=== PATIENT | female | born 1950 | race Hispanic/Latino ===

== ENCOUNTER → 2018-03-31 | Outpatient (CLI) | payer MEDICARE ==
--- NOTE | 2018-03-31 09:52 | Diagnostic Imaging Report ---
EXAM: Thyroid Ultrasound INDICATION: ^[id number] ^[id number] ^HYPOTHYROIDISM COMPARISON: None TECHNIQUE: Transverse and sagittal images were obtained of the thyroid gland. FINDINGS: Thyroid gland: Size: Right lobe 4.0 x 1.4 x 1.2 cm, Normal in size Left lobe 3.0 x 0.9 x 1.1 cm, Normal in size Isthmus 0.3 cm, Normal in size Appearance: Heterogeneous echotexture without increased vascularity Masses/Nodules: None Parathyroid: No focal parathyroid masses. IMPRESSION: Heterogeneous thyroid gland. No focal nodule is seen. Signed by: Dr. Wilman Vargas M.D. on 03/31/2018 9:48 AM
== END ==
LOC: US 08:51
PROVIDERS: ATTEND Family Medicine
DX: E03.9 Hypothyroidism, unspecified (principal)
CPT/HCPCS: 76536

== ENCOUNTER → 2019-04-11 | Outpatient (CLI) | payer MEDICARE | LOC: RAD 09:25 | PROVIDERS: ATTEND Family Medicine | DX: I10 Essential (primary) hypertension (principal) | CPT/HCPCS: 93306 ==

== ENCOUNTER 2019-12-07 08:20 | Inpatient (IN) | payer MEDICARE ==
[~2019-12-07] VITALS: Ht 157.5 cm; Wt 63.5 kg
[2019-12-07] MEDS ORDERED: PIPER-TAZ 3.375 GM 50 ML IV STA (08:35)
[2019-12-07] MEDS ORDERED: ONDANSETRON HCL INJ 2MG/ML 2ML 2 MG/ML VIAL IV STA (08:35)
[2019-12-07] MEDS ORDERED: MORPHINE SULFATE INJ 4 MG/ML INJ 1ML IV PRN ×2 (08:45→12:00)
--- NOTE | 2019-12-07 08:49 | Emergency Department Note ---
History of Present Illnes History of Present Illness Chief Complaint: Abdominal Complaints History of Present Illness This is a 69 year old female arrives to the ED with complaints of right lower quadrant pain/tenderness of began this morning. States symptoms associated with nausea but no vomiting.. Historian: Patient Arrival Mode: Car History limited by: condition of the patient Onset (how long ago): day(s) Severity: moderate Onset quality: sudden Duration (how long): day(s) Timing of current episode: constant Progression: worsening Chronicity: new Past Medical/Family History Physician Review I have reviewed the patient's past medical and family history. Any updates have been documented here. Past Medical History Recent Fever: Yes Clinical Suspicion of Infectio: Yes New/Unexplained Change in Ment: No Past Medical History: Hypertension, Hypothyroidism Other Medical History: osteoporosis Past Surgical History: Tubal Ligation, Back Surgery Review of Systems Review of Systems Constitutional: Reports no symptoms EENTM: Reports no symptoms Cardiovascular: Reports no symptoms Respiratory: Reports no symptoms Gastrointestinal: Reports as per HPI, Reports abdominal pain, Reports nausea Genitourinary: Reports no symptoms Musculoskeletal: Reports no symptoms Integumentary: Reports no symptoms Neurological: Reports no symptoms Psychological: Reports no symptoms Endocrine: Reports no symptoms Hematological/Lymphatic: Reports no symptoms Physical Exam Related Data Allergies: Coded Allergies: No Known Allergies (Unverified , 12/07/19) Triage Vital Signs Vital Signs Date Time Temp Pulse Resp B/P (MAP) Pulse Ox O2 Delivery O2 Flow Rate FiO2 12/07/19 08:23 102.0 101 18 145/83 99 Room Air Vital signs reviewed: Yes Physical Exam CONSTITUTIONAL Constitutional: Present well-developed, Present well-nourished HENT HENT: Present normocephalic, Present atraumatic, Present oropharynx clear/moist, Present nose normal HENT L/R: Present left ext ear normal, Present right ext ear normal EYES Eyes: Reports PERRL, Reports conjunctivae normal NECK Neck: Present ROM normal PULMONARY Pulmonary: Present effort normal, Present breath sounds normal CARDIOVASCULAR Cardiovascular: Present regular rhythm, Present heart sounds normal, Present capillary refill normal, Present normal rate GASTROINTESTINAL Abdominal: Present soft, Present bowel sounds normal, Present tender GENITOURINARY Genitourinary: Present exam deferred SKIN Skin: Present warm, Present dry MUSCULOSKELETAL Musculoskeletal: Present ROM normal NEUROLOGICAL Neurological: Present alert, Present oriented x 3, Present no gross motor or sensory deficits PSYCHOLOGICAL Psychological: Present mood/affect normal, Present judgement normal Results Laboratory Lab results reviewed: Yes Imaging Imaging results reviewed: Yes Impressions IMPRESSION: 1. Indeterminant etiology of an inflammatory mass versus phlegmonous change in the right lower quadrant extending into the right hemipelvis measuring up to 6.3 cm. Multiple structures are involved including a dilated and inflamed appendix, the right ovary as well as the right ureter which courses through the region. Findings are most concerning for either acute on chronic appendicitis versus appendicitis superimposed on underlying distal appendiceal mass. Contained perforation is also a consideration. Negative for pneumoperitoneum. Negative for right hydronephrosis. Given patient's age a tubo-ovarian abscess is considered less likely. No drainable fluid component to the mass is identified. 2. 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 3. Uncomplicated colonic diverticulosis. The above findings were discussed with Dr. Daniels on 12/07/2019 11:40 AM, who responded indicating that the communication was understood. Assessment & Plan Medical Decision Making MDM 61-year-old female arrived to the ED right lower quadrant abdominal pain. CT findings concerning for appendicitis with possible underlying mass. Patient admitted for further workup and management. Patient given empiric dose of antibiotics in the ED. Dr. Gibbs informed of findings. Assessment & Plan Final Impression: (1) Right lower quadrant abdominal mass (2) Appendicitis Depart Disposition: ADMITTED Last Vital Signs Date Time Temp Pulse Resp B/P (MAP) Pulse Ox O2 Delivery O2 Flow Rate FiO2 12/07/19 08:23 102.0 101 18 145/83 99 Room Air Home Meds Reported Medications Losartan/Hydrochlorothiazide (LOSARTAN-HCTZ 50-12.5 MG TAB) 1 Each Tablet, 1 TAB PO DAILY 12/07/19 Thyroid,Pork (EXTRUDING MACHINE OPERATOR THYROID) 90 Mg Tablet, 90 MG PO DAILY 12/07/19 JOSHUA DANIELS DO Dec 07, 2019 08:44
[2019-12-07] MEDS ORDERED: ACETAMINOPHEN 325 MG TAB PO ONE (09:00)
[2019-12-07] MEDS: SODIUM CHLORIDE 0.9% 1000ML 1,000 ML IV SCH ×2 (09:01→13:25)
[2019-12-07 09:12] LABS: BASOPHILS % 0.2 % (0.0-1.0); EOSINOPHILS % 0.1 % (0.0-6.0); HEMATOCRIT 37.9 % (34.2-44.1); HEMOGLOBIN 13.2 g/dL (12.0-16.0); LYMPHOCYTES # (AUTO) 0.5 (1.0-3.2); LYMPHOCYTES % 5.4 % (18.0-39.1); MEAN CORPUSCULAR HEMOGLOBIN 29.9 pg (28-32); MEAN CORPUSCULAR HGB CONC 34.8 g/dL (31-35); MEAN CORPUSCULAR VOLUME 85.9 fL (81-99); MONOCYTES # (AUTO) 0.1 (0.2-0.8); MONOCYTES % 0.8 % (4.4-11.3); NEUTROPHILS # (AUTO) 8.9 (2.1-6.9); NEUTROPHILS % 92.9 % (38.7-80.0); PLATELET COUNT 221 x10e3/uL (140-360); RED BLOOD COUNT 4.41 x10e6/uL (3.6-5.1); RED CELL DISTRIBUTION WIDTH 11.9 % (11.7-14.4)
[2019-12-07 09:25] LABS: ALANINE AMINOTRANSFERASE 40 IU/L (0-55); ALBUMIN 3.5 g/dL (3.5-5.0); ALBUMIN/GLOBULIN RATIO 0.9 (0.8-2.0); ALKALINE PHOSPHATASE 132 IU/L (40-150); ANION GAP 13.8 mmol/L (8-16); BLOOD UREA NITROGEN 11 mg/dL (7-26); BUN/CREATININE RATIO 14 (6-25); CALCIUM 8.7 mg/dL (8.4-10.2); CARBON DIOXIDE 21 mmol/L (22-29); CHLORIDE 101 mmol/L (98-107); CREATININE, SERUM 0.78 mg/dL (0.57-1.11); EST GLOMERULAR FILTRATION RATE > 60 ML/MIN (60-); GLUCOSE 340 mg/dL (74-118); POTASSIUM 3.8 mmol/L (3.5-5.1); SODIUM 132 mmol/L (136-145)
[2019-12-07 09:31] LABS: CLARITY,URINE CLEAR (CLEAR); COLOR,URINE YELLOW (YELLOW); KETONES,URINE 2+ (NEGATIVE); LEUKOCYTE ESTERASE ,URINE NEGATIVE (NEGATIVE); NITRITE,URINE NEGATIVE (NEGATIVE); PROTEIN,URINE DIPSTICK 2+ (NEGATIVE)
[2019-12-07 09:32] LABS: BILIRUBIN,URINE NEGATIVE (NEGATIVE); URINE UROBILINOGEN 0.2 mg/dL (0.2 - 1)
[2019-12-07] MEDS ORDERED: IOPAMIDOL 370 MG/ML 200 ML INFUS..BTL INJ ONE (09:46)
[2019-12-07] MEDS ORDERED: SODIUM CHLORIDE 0.9% 50ML 50 ML ONE (09:46)
[2019-12-07 09:47] LABS: BACTERIA,URINE RARE /HPF; EPITHELIAL CELLS,URINE RARE /LPF; RBC,URINE 0-5 /HPF (0-5); WBC,URINE (MAN) 0-5 /HPF (0-5)
--- NOTE | 2019-12-07 11:59 | Diagnostic Imaging Report ---
CT of the abdomen and pelvis with contrast TECHNIQUE: CT of the abdomen and pelvis WITH intravenous contrast and WITHOUT oral contrast. Dose modulation, iterative reconstruction, and/or weight-based adjustment of the mA/kV was utilized to reduce the radiation dose to as low as reasonably achievable. IV CONTRAST: 100 mL of Isovue-370 ORAL CONTRAST: None RADIATION DOSE: Total DLP: 643 mGy*cm COMPLICATIONS: None INDICATION: ^Y ^rlq pain ^[id number] ^[id number]. COMPARISON: None. FINDINGS: LOWER THORAX: Unremarkable. HEPATOBILIARY: No focal hepatic lesions. Gallbladder is unremarkable. No biliary ductal dilatation. SPLEEN: No splenomegaly. PANCREAS: No focal masses or ductal dilatation. A few scattered calcifications are noted. ADRENALS: No adrenal nodules. KIDNEYS/URETERS: No hydronephrosis, stones, or masses. PELVIC ORGANS/BLADDER: Urinary bladder is unremarkable. Uterus and left ovary are unremarkable. Right ovary is not separately identified from the right lower quadrant inflammatory mass that are described below. PERITONEUM/RETROPERITONEUM: No free air or fluid. LYMPH NODES: No lymphadenopathy. A few prominent right lower quadrant mesenteric lymph nodes are noted, nonspecific VESSELS: Multiple thrombosed peripherally calcified splenic artery aneurysms are noted. The largest measure up to 1.7 and 1.4 cm. GI TRACT: Limited due to lack of oral contrast. Small hiatal hernia is noted. Mid to distal stomach is decompressed limiting evaluation. Negative for bowel obstruction. Numerous diverticula are identified of the sigmoid colon without surrounding inflammatory changes. In the right lower quadrant there is a enhancing inflammatory phlegmon versus mass measuring up to 6.3 x 3.4 cm along the anterior aspect of the psoas extending to the pelvic inlet. A separate right ovary is not identified in the expected region of the right adnexa suggesting that the ovaries probably contained within this region as well. There is mild surrounding inflammatory change. The appendix demonstrates peripheral enhancement, dilatation and surrounding inflammatory change and extends directly within this complex lesion. The distal portion of the appendix is not well visualized within the lesion. The right ureter also courses directly through the region and is mildly more prominent than the left. BONES AND SOFT TISSUES: No acute osseous abnormality. Focal advanced degenerative changes are noted at L5-S1. No suspicious lytic or blastic lesion. Soft tissues are unremarkable. IMPRESSION: 1. Indeterminant etiology of an inflammatory mass versus phlegmonous change in the right lower quadrant extending into the right hemipelvis measuring up to 6.3 cm. Multiple structures are involved including a dilated and inflamed appendix, the right ovary as well as the right ureter which courses through the region. Findings are most concerning for either acute on chronic appendicitis versus appendicitis superimposed on underlying distal appendiceal mass. Contained perforation is also a consideration. Negative for pneumoperitoneum. Negative for right hydronephrosis. Given patient's age a tubo-ovarian abscess is considered less likely. No drainable fluid component to the mass is identified. 2. 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 3. Uncomplicated colonic diverticulosis. The above findings were discussed with Dr. Galdamez on 12/07/2019 11:40 AM, who responded indicating that the communication was understood. Signed by: Chau Teixeira MD on 12/07/2019 11:56 AM
[2019-12-07 12:07] LABS: AMYLASE 55 U/L (25-125); LIPASE 78 U/L (8-78)
[2019-12-07] MEDS ORDERED: METRONIDAZOLE 500MG/NS 100ML 100 ML IV SCH (12:30)
[2019-12-07] MEDS ORDERED: NP THYROID90 MG PO (14:23)
[2019-12-07] MEDS ORDERED: LOSARTAN-HCTZ1 EACH PO (14:23)
[2019-12-07 14:55] VITALS: BP 123/72
--- NOTE | 2019-12-07 14:55 | NUR ---
PATIENT RECEIVED FROM ER PER STRETCHER, ALERT AND VERBALLY RESPONSIVE. ASSISTED TO THE RESTROOM AND BACK TO BED. DENIED PAIN AT THIS TIME. SKIN WARM AND DRY TO TOUCH, RESPIRATION EVEN AND UNLABORED, ABDOMEN SOFT AND NON DISTENDED. TELEMETRY BOX IN PLACE. PATIENT ORIENTED TO SURROUNDINGS. BED IN LOWER POSITION AND LOCKED. CALL LIGHT AT REACH, INSTRUCTED TO CALL FOR ASSISTANCE NEEDED. DAUGHTER AT BED SIDE.
[2019-12-07 15:49] VITALS: BP 134/64
[2019-12-07] MEDS: PIPER-TAZ 3.375 GM 50 ML IV SCH ×2 (16:20→22:15)
[2019-12-07] MEDS: ONDANSETRON HCL INJ 2MG/ML 2ML 2 MG/ML VIAL IV PRN (18:20)
--- NOTE | 2019-12-07 18:52 | History and Physical ---
CHIEF COMPLAINT: A 69-year-old female that came in with right lower quadrant abdominal pain. HISTORY OF PRESENTING ILLNESS: Ms. Brandi Solorio, who is in a usual state of health until the day prior to admission the patient started to have abdominal pain, which is 9/10 in intensity. The patient came into the emergency room and was found to have questionable appendicitis and was admitted for the same. PAST MEDICAL HISTORY: History of hypertension, history of hypothyroidism, and history of osteoporosis. PAST SURGICAL HISTORY: History of tubal ligation and history of back surgery in the mid 80s. MEDICATION: She takes at home include losartan, hydrochlorothiazide, and antithyroid 19 mg daily. REVIEW OF SYSTEMS: Negative for chest pain. No shortness of breath. No nausea. No vomiting. No diarrhea. No constipation. No rectal bleeding. No hematochezia. No hematemesis. Positive for abdominal pain. SOCIAL HISTORY: No EtOH, no IV drug abuse. No history of smoking either. PHYSICAL EXAMINATION: VITAL SIGNS: On arrival, temperature was 102, pulse of 101, respirations of 18, blood pressure is 145/83, T-max is 102. HEENT: Normocephalic, atraumatic. No jaundice present. CVS: S1, S2 normal. Regular rate and rhythm. ABDOMEN: Tender in the right lower quadrant, positive for rebound, Positive for guarding. EXTREMITIES: No clubbing, no cyanosis, no edema. LABORATORY VALUES: White count is 9.55, hemoglobin of 13.2, hematocrit of 37.9. Chemistry shows sodium 132, potassium 3.8, BUN of 11, creatinine 0.78, glucose is 340. Urine was essentially normal. Serology: Lorenz virus was pending. Microbiology, blood cultures pending. IMAGING STUDIES: CT of the abdomen and pelvis shows indeterminate etiology for inflammatory phlegmonous changes in the right lower quadrant extending into the right hemipelvis, 6.3 cm in size multiple structures involved including a dilated inflamed appendix, calcified splenic artery aneurysms and uncomplicated colonic diverticulosis. ASSESSMENT AND PLAN: Ms. Brandi Solorio with: 1. Appendicitis. Surgical consult with Dr. Gibbs has been already done. 2. Hypertension. 3. History of hypothyroidism. PLAN: To continue same medications. Awaiting Dr. Gibbs's consult at this time. Further recommendation per clinical course. We will continue to monitor the patient. Pain control and fluid resuscitation has been started. The patient is also put on IV antibiotic for leukocytosis. Currently, she is on metronidazole and will change metronidazole to Zosyn 3.75 mg q.6 hours. MD ZENA Young/MODL /[id number]
--- NOTE | 2019-12-07 19:50 | NUR ---
Pt has a temperature of 100.[address] Rudy john for orders. Awaiting call back.
[2019-12-07 20:00] VITALS: BP 126/67
[2019-12-07] MEDS ORDERED: ACETAMINOPHEN 325 MG SUPP PR PRN (20:30)
[2019-12-07] MEDS ORDERED: ACETAMINOPHEN 325 MG TAB PO PRN (20:30)
--- NOTE | 2019-12-07 20:34 | NUR ---
Received call back from Dr. Grant. New orders received for PRN Acetaminophen.
[2019-12-07 21:00] VITALS: BP 126/67
[2019-12-07] MEDS: METRONIDAZOLE 500MG/NS 100ML 100 ML IV SCH (21:16)
--- NOTE | 2019-12-07 21:35 | NUR ---
Consent signed by patient for exploratory laparotomy with possible bowel resection in AM. Pt's daughter, Katherin Solorio, served as hourly sign language interpreter. Pt verbalized understanding of procedure and risks of surgery. Dr. Gibbs spoke to pt and daughter prior to signing consent. Patient and daughter verbalized understanding of NPO status after midnight.
[2019-12-08] VITALS (7 sets, daily range): BP systolic 101–150; BP diastolic 62–80
[2019-12-08] MEDS: SODIUM CHLORIDE 0.9% 1000ML 1,000 ML IV SCH ×2 (04:45→18:08)
[2019-12-08] MEDS: PIPER-TAZ 3.375 GM 50 ML IV SCH ×4 (04:45→21:16)
[2019-12-08 06:11] LABS: BASOPHILS % 0.5 % (0.0-1.0); EOSINOPHILS % 0.5 % (0.0-6.0); HEMATOCRIT 34.6 % (34.2-44.1); HEMOGLOBIN 11.7 g/dL (12.0-16.0); LYMPHOCYTES # (AUTO) 0.4 (1.0-3.2); LYMPHOCYTES % 6.8 % (18.0-39.1); MEAN CORPUSCULAR HEMOGLOBIN 30.1 pg (28-32); MEAN CORPUSCULAR HGB CONC 33.8 g/dL (31-35); MEAN CORPUSCULAR VOLUME 88.9 fL (81-99); MONOCYTES # (AUTO) 0.3 (0.2-0.8); MONOCYTES % 4.9 % (4.4-11.3); NEUTROPHILS # (AUTO) 5.5 (2.1-6.9); PLATELET COUNT 154 x10e3/uL (140-360); RED BLOOD COUNT 3.89 x10e6/uL (3.6-5.1); RED CELL DISTRIBUTION WIDTH 12.2 % (11.7-14.4)
[2019-12-08] MEDS: METRONIDAZOLE 500MG/NS 100ML 100 ML IV SCH ×2 (06:28→13:50)
[2019-12-08] MEDS ORDERED: ACETAMINOPHEN 650 MG SUPP PR PRN (06:30)
[2019-12-08 06:42] LABS: ALANINE AMINOTRANSFERASE 32 IU/L (0-55); ALBUMIN 2.8 g/dL (3.5-5.0); ALBUMIN/GLOBULIN RATIO 0.7 (0.8-2.0); ALKALINE PHOSPHATASE 87 IU/L (40-150); ANION GAP 10.5 mmol/L (8-16); BLOOD UREA NITROGEN 10 mg/dL (7-26); BUN/CREATININE RATIO 14 (6-25); CALCIUM 7.9 mg/dL (8.4-10.2); CARBON DIOXIDE 22 mmol/L (22-29); CHLORIDE 104 mmol/L (98-107); EST GLOMERULAR FILTRATION RATE > 60 ML/MIN (60-); GLUCOSE 272 mg/dL (74-118); POTASSIUM 3.5 mmol/L (3.5-5.1); SODIUM 133 mmol/L (136-145)
[2019-12-08] MEDS ORDERED: DEXTROSE 50% SYRINGE 50 ML IV PRN (07:00)
[2019-12-08] MEDS: INSULIN LISPRO 100 UNIT/1 ML 3ML VIAL SQ SCH ×4 (07:30→21:00)
--- NOTE | 2019-12-08 07:31 | NUR ---
PATIENT ASSISTED WITH SHOWER AND BACK TO BED. REMAINS NPO FOR A PROCEDURE. IV FUID INFUSING ORDERED. BED IN LOWER POSITION, CALL LIGHT AT REACH.
--- NOTE | 2019-12-08 07:55 | Progress Note ---
DATE: 12/08/2019 SUBJECTIVE: The patient is a 69-year-old female, who came in with acute abdomen. The patient is scheduled for surgery today. Had a spike in temperature yesterday. Otherwise, no complaints. OBJECTIVE: VITAL SIGNS: Temperature is 98.9, pulse of 89, respirations of 20, blood pressure is 117/62 with a pulse oximetry of 100%. HEENT: Normocephalic, atraumatic. No icterus present. CVS: S1, S2 normal. Regular rate and rhythm. ABDOMEN: Tenderness in the left lower quadrant and periumbilical area. Positive for guarding and no rebound. EXTREMITIES: No clubbing, no cyanosis and/or no edema. LABORATORY VALUES: Today's white count 6.32, hemoglobin and hematocrit remained stable at 11.7 and 34.6. Chemistry; sodium 133, glucose of 272. Lipase is 78. Serology; coronavirus is still pending. Microbiology; blood cultures still pending. ASSESSMENT AND PLAN: This is Ms. Brandi Donovan, who is a 69-year-old female with: 1. Acute appendicitis. 2. Hypertension. 3. Hypothyroidism and now hyperglycemia. PLAN: 1. Okay to take to surgery. 2. We will put her on a sliding scale for insulin sliding scale. 3. We will also check her hemoglobin A1c. 4. Continue current medications. can be given with a sip of water. Further recommendation per clinical course. We will keep the patient n.p.o. and schedule for surgery with Dr. Cesario Gibbs today. MD ZENA Young/MODL /[id number]
--- NOTE | 2019-12-08 11:13 | NUR ---
SPOKE WITH OR NURSE REGARDING PATIENT'S PROCEDURE AND TIME, SHE STATED THAT PATIENT WILL BE PICKED UP AROUND 14:00. PATIENT NOTIFIED.
--- NOTE | 2019-12-08 13:09 | NUR ---
PATIENT OFF UNIT TO OR.
[2019-12-08] MEDS ORDERED: FENTANYL CITRATE/PF 100MCG/2 ML INJ ONE (14:30)
[2019-12-08] MEDS ORDERED: VERAPAMIL HCL 2.5 MG/ML 2 ML VIAL ONE (14:30)
[2019-12-08] MEDS ORDERED: ONDANSETRON HCL INJ 2MG/ML 2ML 2 MG/ML VIAL IV PRN (15:45)
[2019-12-08] MEDS ORDERED: HYDROMORPHONE 1MG/1ML INJ IV PRN (15:45)
--- NOTE | 2019-12-08 16:33 | Operative Report ---
DATE OF PROCEDURE: 12/08/2019 SURGEON: Cesario Gibbs MD PREOPERATIVE DIAGNOSIS: Inflammatory mass of the right lower quadrant, rule out appendicitis versus right ovarian mass. POSTOPERATIVE DIAGNOSIS: Inflammatory mass of the right lower quadrant, rule out appendicitis versus right ovarian mass plus Meckel's diverticulum. OPERATION PERFORMED: Exploratory laparotomy, appendectomy, right salpingo-oophorectomy and resection of Meckel's diverticulum. INJECTION MOLDING SUPERVISOR: William Gibbs MD. ANESTHESIA: General. COMPLICATIONS: None. ESTIMATED BLOOD LOSS: 50 mL. INDICATION: The patient lying in bed in the supine position under good general endotracheal anesthesia. The abdomen was prepped with Betadine solution and draped in the usual manner. A lower midline incision was made, was carried down through the subcutaneous tissue and through the midline fascia. The peritoneum was opened and the abdomen was entered. Upon entering the abdominal cavity, exploration revealed an inflammatory mass in the right lower quadrant. The left ovary was within normal limits. The uterus was also within normal limits. Exploration of the small bowel revealed a Meckel's diverticulum. Upon further exploration of the right lower quadrant, there was an inflammatory mass that involved the appendix. The base of the appendix appeared to be normal with the lower 2/3 of the appendix were plastered to the right ovary. The right ovary and tube and adnexa were showing significant inflammatory reaction in the area as well, it was impossible to tell, which was the source of the infection with the appendix or the ovary, although more than likely the offending organism is going to be the appendix. We decided to go ahead and remove both the appendix and the right adnexa as there was too much of an inflammatory component in the right adnexa to leave behind. The appendix was then mobilized off the lateral gutter and the cecum was brought up. At this point, we decided to go ahead and separate the appendix and the ovary and this was done sharply. Once this was done, the mesentery of the appendix was then ligated with 2-0 Vicryl ties. The base of the appendix which was normal was ligated with 2-0 Vicryl tie. The appendix was then resected and sent for pathological examination and the stump was cauterized and inverted with a pursestring suture of 2-0 Vicryl. After this was done, the peritoneum overlying the base of the ovary was then opened up and the ovarian pedicle was identified and doubly ligated with 0 silk ties and divided. The right adnexa were then mobilized off the lateral gutter towards the uterine horn. The inflammatory component extended all the way up to the uterine horn. The uterine horn was then suture ligated with 0 Vicryl sutures and the right adnexa was resected and sent for pathological examination. After this was done, the Meckel's diverticulum was then delivered up into the wound and was resected with an application of the TA-60 stapler. The staple line was oversewn with 3-0 silk sutures. The abdomen was then copiously irrigated with saline solution. All the fluid was aspirated, a perfect hemostasis was ascertained and the abdomen was then closed in layers. The peritoneum was closed with a running suture of #1 Vicryl, the midline fascia was closed with a running suture of #1 Vicryl and the skin was closed with clips. Dressings were applied. The sponge, lap, and needle count was correct. The patient tolerated the procedure well and returned to the recovery room in stable condition. MD ESAU Guerra/MIKAEL /[id number]
--- NOTE | 2019-12-08 16:45 | NUR ---
PATIENT TO BE TRANSFER TO MED SURG 1 ROOM 113 AFTER PROCEDURE. BEDSIDE REPORT GIVEN TO RECEIVING NURSE. ALL PERSONAL ITEMS TRANSFERRED TO 113 WITH PATIENT'S DAUGHTER.
--- NOTE | 2019-12-08 16:48 | NUR ---
PT ARRIVED TO ROOM 113; IN STABLE CONDITION.
[2019-12-08] MEDS ORDERED: PROPOFOL IV EMULSION 10 MG/ML 20 ML VIAL ONE (17:57)
[2019-12-08] MEDS ORDERED: NEOSTIGMINE 1 MG/ML 10ML VIAL ONE (17:57)
[2019-12-08] MEDS ORDERED: LIDOCAINE HCL 2% LOCAL INJ 5 ML SDV VIAL INJ ONE (17:57)
[2019-12-08] MEDS ORDERED: SEVOFLURANE INHAL SOLN 250 ML PEN BTL ONE (17:57)
[2019-12-08] MEDS ORDERED: DEXAMETHASONE SOD PHOS INJ 4 MG/ML VIAL ONE (17:57)
[2019-12-08] MEDS ORDERED: ROCURONIUM BROMIDE 10 MG/ML 5ML VIAL IV ONE (17:57)
[2019-12-08] MEDS ORDERED: GLYCOPYRROLATE INJ 0.2 MG/ML VIAL ONE (17:57)
[2019-12-08] MEDS ORDERED: ONDANSETRON HCL INJ 2MG/ML 2ML 2 MG/ML VIAL ONE (17:57)
[2019-12-08] MEDS: PANTOPRAZOLE 40 MG 10ML VIAL IV SCH (18:08)
--- NOTE | 2019-12-08 19:05 | NUR ---
RECEIVED REPORT FROM PREVIOUS NURSE. CALL LIGHT WITHIN REACH. PATIENT ASLEEP IN BED. DAUGHTER AT THE BEDSIDE. Addendum: 12/08/19 at 2221 by Mili Valdovinos RN HE ALSO SAID "IF SHE DRINKS ANYTHING SHE WILL VOMIT." Addendum: 12/09/19 at 0033 by Mili Valdovinos RN the amended part was suppose to be on the next note when I called Dr. Dede Purdy
--- NOTE | 2019-12-08 22:18 | NUR ---
PATIENT ASKED TO HAVE SOMETHING TO DRINK. CALLED AND TALKED TO DR. Dede SIMS AND HE SAID "WHEN I PUT A PATIENT ON NPO, THEY STAY ON NPO. THE PATIENT HAD A BAD INFECTION. SHE HAD HER APPENDIX REMOVED, OVARIES, AND SOME OF HER BOWEL SO SHE STAYS NPO."
[2019-12-09 04:10] VITALS: BP 166/96
[2019-12-09] MEDS: PIPER-TAZ 3.375 GM 50 ML IV SCH ×4 (04:27→22:05)
[2019-12-09] MEDS: ONDANSETRON HCL INJ 2MG/ML 2ML 2 MG/ML VIAL IV PRN (04:28)
[2019-12-09] MEDS: SODIUM CHLORIDE 0.9% 1000ML 1,000 ML IV SCH ×3 (06:22→22:13)
--- NOTE | 2019-12-09 07:05 | NUR ---
GAVE BEDSIDE SHIFT REPORT TO ONCOMING NURSE. CALL LIGHT WITHIN REACH. PATIENT IN BED ASLEEP. HOURLY ROUNDING PERFORMED. DAUGHTER AT THE BEDSIDE
[2019-12-09] MEDS: INSULIN LISPRO 100 UNIT/1 ML 3ML VIAL SQ SCH ×4 (07:30→21:20)
[2019-12-09 08:47] LABS: BASOPHILS % 0.1 % (0.0-1.0); HEMOGLOBIN 11.5 g/dL (12.0-16.0); LYMPHOCYTES # (AUTO) 0.6 (1.0-3.2); LYMPHOCYTES % 7.3 % (18.0-39.1); MEAN CORPUSCULAR HGB CONC 33.8 g/dL (31-35); MEAN CORPUSCULAR VOLUME 88.8 fL (81-99); MONOCYTES # (AUTO) 0.4 (0.2-0.8); MONOCYTES % 5.3 % (4.4-11.3); NEUTROPHILS # (AUTO) 6.9 (2.1-6.9); NEUTROPHILS % 86.8 % (38.7-80.0); PLATELET COUNT 199 x10e3/uL (140-360); RED BLOOD COUNT 3.83 x10e6/uL (3.6-5.1); RED CELL DISTRIBUTION WIDTH 12.5 % (11.7-14.4)
[2019-12-09 08:54] VITALS: BP 146/87
[2019-12-09 09:07] LABS: ANION GAP 13.8 mmol/L (8-16); BLOOD UREA NITROGEN 13 mg/dL (7-26); BUN/CREATININE RATIO 20 (6-25); CARBON DIOXIDE 17 mmol/L (22-29); CHLORIDE 110 mmol/L (98-107); CREATININE, SERUM 0.64 mg/dL (0.57-1.11); EST GLOMERULAR FILTRATION RATE > 60 ML/MIN (60-); GLUCOSE 234 mg/dL (74-118); POTASSIUM 3.8 mmol/L (3.5-5.1); SODIUM 137 mmol/L (136-145)
[2019-12-09 10:29] VITALS: BP 146/87
[2019-12-09 12:26] VITALS: BP 163/86
--- NOTE | 2019-12-09 15:30 | NUR ---
PT WAS AMBULATING IN ROOM WITH DAUGHTER AT BEDSIDE, THEN SUDDENLY BECAME SHORT OF BREATH AND TACHYPNEIC. PT LAID DOWN IN BED, PLACED ON 2L NC O2. VITAL SIGNS: TEMPERATURE 98.1, 91 BPM, 100% ON 2L, 181/94 BP, RESPIRATIONS 20. PT AFEBRILE, MORE RELAXED IN BED WITH 2L NC IN PLACE. FLUIDS PLACED ON HOLD DUE TO ELEVATED BLOOD PRESSURE. PAGING DR. REIS FOR ORDERS.
--- NOTE | 2019-12-09 16:12 | NUR ---
DR. CHONG CALLED BACK FOR DR. REIS; RECEIVED NEW ORDERS FOR BLOOD PRESSURE.
[2019-12-09] MEDS ORDERED: HYDRALAZINE HCL 20 MG/ML VIAL IV PRN (16:15)
[2019-12-09] MEDS: PANTOPRAZOLE 40 MG 10ML VIAL IV SCH (17:21)
--- NOTE | 2019-12-09 19:25 | NUR ---
Received the pt in report.lyeing in the bed..abd.binder is in place.denied any needs
[2019-12-09 20:00] VITALS: BP 150/76
[2019-12-09 21:00] VITALS: BP 150/76
[2019-12-10] VITALS (8 sets, daily range): BP systolic 135–161; BP diastolic 77–87
--- NOTE | 2019-12-10 00:43 | Progress Note ---
DATE: 12/10/2019 SUBJECTIVE: Currently, the patient is doing fairly well. She is actually tolerating her clear liquid diet with no issues. No nausea or vomiting. She states her pain is well controlled. She said earlier this afternoon she did have a low moment of shortness of breath that has since resolved. OBJECTIVE: VITAL SIGNS: Temperature 99.1, pulse 89, blood pressure 150/76, sats 99% on room air. GENERAL: No apparent distress, lying in bed. CARDIOVASCULAR: Regular rate and rhythm. LUNGS: Clear to auscultation bilaterally. ABDOMEN: Soft, slight bowel sounds, nondistended, nontender. No peritoneal signs. EXTREMITIES: No clubbing or cyanosis. NEUROLOGIC: Moves all extremities x4. ASSESSMENT/PLAN: 1. Status post abdominal surgery with abdominal pain. Continue with postoperative care and monitoring. 2. Diabetes. Continue with current care monitoring. 3. Hypertension. We will restart her home medicines. 4. Hypothyroidism. We will restart her home medicines. Please see hospital chart for full details. MD BARBRA Gardner/MIKAEL /[id number]
[2019-12-10] MEDS: PIPER-TAZ 3.375 GM 50 ML IV SCH ×4 (04:51→21:59)
[2019-12-10] MEDS: SODIUM CHLORIDE 0.9% 1000ML 1,000 ML IV SCH ×2 (05:38→16:45)
[2019-12-10 06:07] LABS: BASOPHILS % 0.1 % (0.0-1.0); EOSINOPHILS % 0.4 % (0.0-6.0); HEMATOCRIT 35.7 % (34.2-44.1); HEMOGLOBIN 12.2 g/dL (12.0-16.0); LYMPHOCYTES % 12.5 % (18.0-39.1); MEAN CORPUSCULAR HEMOGLOBIN 29.6 pg (28-32); MEAN CORPUSCULAR HGB CONC 34.2 g/dL (31-35); MEAN CORPUSCULAR VOLUME 86.7 fL (81-99); MONOCYTES # (AUTO) 0.5 (0.2-0.8); MONOCYTES % 6.5 % (4.4-11.3); NEUTROPHILS # (AUTO) 6.5 (2.1-6.9); NEUTROPHILS % 79.9 % (38.7-80.0); PLATELET COUNT 237 x10e3/uL (140-360); RED BLOOD COUNT 4.12 x10e6/uL (3.6-5.1); RED CELL DISTRIBUTION WIDTH 12.2 % (11.7-14.4)
[2019-12-10 06:54] LABS: ANION GAP 14.1 mmol/L (8-16); BLOOD UREA NITROGEN 8 mg/dL (7-26); BUN/CREATININE RATIO 13 (6-25); CALCIUM 8.5 mg/dL (8.4-10.2); CARBON DIOXIDE 20 mmol/L (22-29); CHLORIDE 102 mmol/L (98-107); EST GLOMERULAR FILTRATION RATE > 60 ML/MIN (60-); GLUCOSE 208 mg/dL (74-118); POTASSIUM 3.1 mmol/L (3.5-5.1); SODIUM 133 mmol/L (136-145)
--- NOTE | 2019-12-10 07:26 | NUR ---
Bed side shift report given to oncoming Rn.stable condition.
[2019-12-10] MEDS: THYROID 60 MG TAB PO SCH (07:42)
[2019-12-10] MEDS: INSULIN LISPRO 100 UNIT/1 ML 3ML VIAL SQ SCH ×4 (08:09→21:20)
[2019-12-10] MEDS ORDERED: NON-FORMULARY MEDICATION (Losartan/Hydrochlorothiazide (Losartan-Hctz 50-12.5 Mg Tab) 1 TA PO SCH (09:00)
[2019-12-10] MEDS: LOSARTAN POTASSIUM 25 MG TAB PO SCH (11:14)
[2019-12-10] MEDS: HYDROCHLOROTHIAZIDE 25 MG TAB PO SCH (11:15)
[2019-12-10] MEDS: PANTOPRAZOLE 40 MG 10ML VIAL IV SCH (17:24)
--- NOTE | 2019-12-10 19:15 | NUR ---
Received the patient in report.stable condition.call light within reach.instructed to call for assistance as needed.
[2019-12-11] VITALS (7 sets, daily range): BP systolic 129–149; BP diastolic 69–87
[2019-12-11] MEDS: SODIUM CHLORIDE 0.9% 1000ML 1,000 ML IV SCH ×3 (02:06→22:45)
[2019-12-11] MEDS: PIPER-TAZ 3.375 GM 50 ML IV SCH ×4 (03:47→22:27)
[2019-12-11 05:24] LABS: BASOPHILS % 0.4 % (0.0-1.0); EOSINOPHILS # (AUTO) 0.2 (0.0-0.4); EOSINOPHILS % 2.3 % (0.0-6.0); HEMATOCRIT 37.8 % (34.2-44.1); LYMPHOCYTES # (AUTO) 1.5 (1.0-3.2); MEAN CORPUSCULAR HEMOGLOBIN 29.4 pg (28-32); MEAN CORPUSCULAR HGB CONC 34.4 g/dL (31-35); MEAN CORPUSCULAR VOLUME 85.5 fL (81-99); MONOCYTES # (AUTO) 0.6 (0.2-0.8); MONOCYTES % 7.9 % (4.4-11.3); NEUTROPHILS # (AUTO) 4.7 (2.1-6.9); NEUTROPHILS % 66.7 % (38.7-80.0); PLATELET COUNT 287 x10e3/uL (140-360); RED BLOOD COUNT 4.42 x10e6/uL (3.6-5.1); RED CELL DISTRIBUTION WIDTH 12.3 % (11.7-14.4)
[2019-12-11 05:45] LABS: BLOOD UREA NITROGEN 12 mg/dL (7-26); BUN/CREATININE RATIO 19 (6-25); CALCIUM 8.3 mg/dL (8.4-10.2); CARBON DIOXIDE 20 mmol/L (22-29); CHLORIDE 102 mmol/L (98-107); CREATININE, SERUM 0.62 mg/dL (0.57-1.11); EST GLOMERULAR FILTRATION RATE > 60 ML/MIN (60-); GLUCOSE 164 mg/dL (74-118); SODIUM 135 mmol/L (136-145)
--- NOTE | 2019-12-11 07:00 | NUR ---
ASSUMED CARE. PATIENT RESTING IN BED. AWAKE AND ALERT. ACYANOTIC. NO DISTRESS NOTED. CALL LIGHT IN REACH. SIDE RAILS UP X2. BED LOW LOCKED. FAMILY MEMBER PRESENT AT BEDSIDE.
--- NOTE | 2019-12-11 07:10 | NUR ---
Bed side shift report given to oncoming Rn.stable condition.
--- NOTE | 2019-12-11 08:08 | Progress Note ---
DATE: 12/11/2019 SUBJECTIVE: The patient is a 69-year-old female, who came in with abdominal pain, status post surgery by Dr. Gibbs. The patient had a removal of the right ovary and also Meckel's diverticulum and also appendix. Currently, she is still feeling a little bit nauseous, tolerating liquids, but very sparingly, has been walking around. No bowel sound. No flatus and no BMs yet. OBJECTIVE: VITAL SIGNS: Temperature is 98.6, pulse of 87, respirations of 18, blood pressure is 129/81, pulse oximetry 100%. HEENT: Normocephalic and atraumatic. Pupils are reactive. CVS: S1 and S2 normal. Regular rate and rhythm. ABDOMEN: Nontender, nondistended. Bowel sounds are positive. EXTREMITIES: No clubbing, no cyanosis, no edema. LABORATORY VALUES: Of note, recent A1c was 12.9. Glucoses have been running in the 240s and has a sliding scale. ASSESSMENT: This is Ms. Brandi Solorio with: 1. Uncontrolled diabetes, new onset. 2. Hypertension. 3. Status post right salpingo-oophorectomy with appendectomy and repair of Meckel's diverticulum. PLAN: Continue current care. Insulin is given for diabetes. When discharged, the patient will be discharged on glimepiride and also on metformin. Further recommendation per clinical course. We will continue to monitor the patient. Laboratory values have been stable. Sodium of 137, potassium of 3.8 on the 24th and glucose again 234. Hematology, hemoglobin and hematocrit stabilized 13 and 37.8. Further recommendation per clinical course. We will continue to monitor the patient, possible discharge today or tomorrow. Bonifacio Grant MD ASJ/MODL /[id number]
[2019-12-11] MEDS: INSULIN LISPRO 100 UNIT/1 ML 3ML VIAL SQ SCH ×4 (08:30→21:55)
[2019-12-11] MEDS: BISACODYL 10 MG SUPP PR SCH ×3 (09:00→22:27)
[2019-12-11] MEDS: THYROID 60 MG TAB PO SCH (09:08)
[2019-12-11] MEDS: HYDROCHLOROTHIAZIDE 25 MG TAB PO SCH (09:08)
[2019-12-11] MEDS: LOSARTAN POTASSIUM 25 MG TAB PO SCH (09:09)
--- NOTE | 2019-12-11 09:09 | NUR ---
AAOX3. ACYANOTIC. RESTING IN CHAIR AT BEDSIDE. PATIENT REFUSED DULCOLAX SUPPOSITORY. PROVIDED EDUCATION ON MEDICATION AND PURPOSE. FAMILY MEMBER AT BEDSIDE. PATIENT PREFERS PRUNE JUICE AT THIS TIME. NATASHA, DAUGHTER, STATES, "IF SHE DOESN'T GO, I WILL ASK FOR THE MEDICATION."
[2019-12-11] MEDS ORDERED: HYDROCODONE/APAP 5MG-325MG TAB PO PRN (12:00)
[2019-12-11] MEDS ORDERED: POTASSIUM CHLORIDE 10MEQ EA PO ONE (16:00)
[2019-12-11] MEDS: PANTOPRAZOLE 40 MG 10ML VIAL IV SCH (17:00)
--- NOTE | 2019-12-11 19:48 | NUR ---
BEDSIDE SHIFT REPORT RECEIVE FROM DAY RN. PT IS ALERT AND ORIENTED X3.RESPIRATIONS ARE EVEN AND UNLABORED. NS INFUSING AT 100/HR. SITE HEALTHY. INCISION STPLES DRY AND INTACT. ABDOMINAL BINDER ON. VOIDING WITHOUT DIFFICULTY.AFTER DULCOLAX SUPP PT HAD 2 BMS. PT REFUSE ANOTHER SUPP. DAUGHTER AT BEDSIDE. CALL LIGHT WITHIN REACH. BED IN LOW POSITION.
[2019-12-11] MEDS ORDERED: BISACODYL 10 MG SUPP PR ONE (21:00)
[2019-12-12] VITALS (7 sets, daily range): BP systolic 138–150; BP diastolic 69–79
[2019-12-12] MEDS: PIPER-TAZ 3.375 GM 50 ML IV SCH ×3 (04:35→16:22)
--- NOTE | 2019-12-12 07:18 | Progress Note ---
DATE: 12/12/2019 SUBJECTIVE: The patient is a 69-year-old female, who came in with abdominal pain, was also found to have appendicitis and also a Meckel's diverticulum. The patient is status post surgery, laparotomy. Doing well. Had some four bowel movements yesterday, was able to ambulate. Pain is restricted and the patient is not taking any more pain medications at this time. No chest pain. No shortness of breath. No nausea, no vomiting. Blood sugars are running in the 200 range, is better. OBJECTIVE: VITAL SIGNS: Temperature is 96.8, pulse of 93, respirations 20, blood pressure is 149/71, pulse oximetry of 98% on room air. HEENT: Normocephalic, atraumatic. Pupils are reactive. CVS: S1 and S2 normal. Regular rate and rhythm. ABDOMEN: Soft, nontender, and nondistended. Midline incision present. Surgical scar is normal. No drainage. EXTREMITIES: No clubbing, no cyanosis, or edema. LABORATORY VALUES: White count has been normal at 6.99, hemoglobin of 13.7, hematocrit 37.8. Chemistry shows sodium 135, potassium 3.0, yesterday replacement was done. Serology; coronavirus is nondetected. Microbiology, a Staphylococcus aureus isolated, probably skin contaminant and pathology is still pending. ASSESSMENT AND PLAN: This is Ms. Brandi Solorio with: 1. Appendicitis status post appendectomy and also Meckel's diverticulum and also salpingo-oophorectomy. 2. Hypertension. 3. Uncontrolled diabetes mellitus. PLAN: Today, we will start the patient on some glimepiride 1 mg to control her blood sugars and metformin can be started as an outpatient. Strict diabetic diet has been advocated to the patient, also the patient will need to start on a statin, which can be done as an outpatient. Currently, continue current postsurgical plan. Further recommendation per clinical course. The patient can be discharged today. We will follow up in about a week's time. MD STEPH YoungJ/MODL /[id number]
[2019-12-12] MEDS ORDERED: GLIMEPIRIDE 2 MG TAB PO SCH (08:00)
--- NOTE | 2019-12-12 08:53 | NUR ---
EDUCATED ABOUT IMM, SIGNED, FILED IN CHART, WITH COPY LEFT WITH FAMILY AT BEDSIDE.
[2019-12-12] MEDS: SODIUM CHLORIDE 0.9% 1000ML 1,000 ML IV SCH (09:17)
[2019-12-12] MEDS: THYROID 60 MG TAB PO SCH (09:18)
[2019-12-12] MEDS: LOSARTAN POTASSIUM 25 MG TAB PO SCH (09:18)
[2019-12-12] MEDS: HYDROCHLOROTHIAZIDE 25 MG TAB PO SCH (09:18)
[2019-12-12] MEDS: INSULIN LISPRO 100 UNIT/1 ML 3ML VIAL SQ SCH ×3 (09:20→16:20)
--- NOTE | 2019-12-12 14:21 | NUR ---
Nutrition Screen Note RD Recommendation for Physician: Continue diet as ordered Plan of Care: RD following, monitoring for tolerance and adequacy Nutrition reason for involvement: MST Primary Diagnose(s):Appendicitis Ht:62 in Wt:140lbs BMI:25.6 kg/m2 IBW:110lbs RD Assessment:(12/12/2019) Initial encounter with patient. Pt is a Yi speaker. Family member present at bedside who translated. Pt denies any N,V,D. Pt eating well during meal rounds. Pt denies any difficulty chewing or swallowing. Pt was able to feed herself. Current Diet: 1800ADA Malnutrition Evaluation (12/12/2019) The patient does not meet criteria for a specified degree of malnutrition at this time. Will re-evaluate at follow-up as appropriate. Diet Education Needs Assessment: Diet education not indicated. Diet Adequacy: Meeting calorie needs, Meeting protein needs, Meeting fluid needs. Tolerance: Tolerating PO Nutrition Care Level: Heriberto Kirby RD,LD,CNSC
[2019-12-12] MEDS: PANTOPRAZOLE 40 MG 10ML VIAL IV SCH (16:22)
--- NOTE | 2019-12-12 18:59 | NUR ---
Patient received discharge order from Dr. Grant once patient was cleared by Dr.J. Gibbs. Patient and daughter were given detailed discharge instructions, follow up steps, and prescription information. Patient and daughter verbalized understanding. Patient IV removed at 1830 and covered with a C/D/I dressing. Patient and daughter given extra abd gauze to cover sawyer on abdomen. Patient wheeled to car at 1850 and had no other issues or complaints.
--- OUTSIDE RECORDS SUMMARY | 2019-12-21 11:51 | XMS REPORT | Continuity of Care Document ---
Author Author [facility] t Organization [facility] Address [address] [place] [address] [address]. [address] [place] [address] Phone Unavailable Care Team Providers Care Geologist Name Role Phone Gregg DANIELS Attphys Unavailable Gregg REIS Attphys Unavailable Gregg REIS Admphys Unavailable Problems This patient has no known problems. Allergies, Adverse Reactions, Alerts This patient has no known allergies or adverse reactions. Medications This patient has no known medications. Procedures This patient has no known procedures. Results Test Description Test Time Test Comments Results Result Comments Source CT ABDOMEN/PELVIS W 2019-12-07 11:47:00 [facility] CENTERName: MCKINLEY BLAKELY : 1950 Sex: F [facility] [address] [place], [place] [address] Patient Name: MCKINLEY BLAKELY MR #: [id number] : 1950 Age/Sex: 69/F Req #: [id number] Adm Physician: Ordered by: JOSHUA DANIELS DO Report #: [id number] Location: ER Room/Bed: Procedure: [id number] CT/CT ABDOMEN/PELVIS W Exam Date: 12/07/19 Exam Time: 948 REPORT STATUS: Signed CT of the abdomen and pelvis with contrast TECHNIQUE: CT of the abdomen and pelvis WITH intravenous contrast and WITHOUT oral contrast. Dose modulation, iterative reconstruction, and/or weight-based adjustment of the mA/kV was utilized to reduce the radiation dose to as low as reasonably achievable. IV CONTRAST: 100 mL of Isovue-370 ORAL CONTRAST: None RADIATION DOSE: Total DLP: 643 mGy*cm COMPLICATIONS: None INDICATION: Y rlq pain [id number]. COMPARISON: None. FINDINGS: LOWER THORAX: Unremarkable. HEPATOBILIARY: No focal hepatic lesions. Gallbladder is unremarkable. No biliary ductal dilatation. SPLEEN: No splenomegaly. PANCREAS: No focal masses or ductal dilatation. A few scattered calcifications are noted. ADRENALS: No adrenal nodules. KIDNEYS/URETERS: No hydronephrosis, stones, or masses. PELVIC ORGANS/BLADDER: Urinary bladder is unremarkable. Uterus and left ovary are unremarkable. Right ovary is not separately identified from the right lower quadrant inflammatory mass that are described below. PERITONEUM/RETROPERITONEUM: No free air or fluid. LYMPH NODES: No lymphadenopathy. A few prominent right lower quadrant mesenteric lymph nodes are noted, nonspecific VESSELS: Multiple thrombosed peripherally calcified splenic artery aneurysms are noted. The largest measure up to 1.7 and 1.4 cm. GI TRACT: Limited due to lack of oral contrast. Small hiatal hernia is noted. Mid to distal stomach is decompressed limiting evaluation. Negative for bowel obstruction. Numerous diverticula are identified of the sigmoid colon without surrounding inflammatory changes. In the right lower quadrant there is a enhancing inflammatory phlegmon versus mass measuring up to 6.3 x 3.4 cm along the anterior aspect of the psoas extending to the pelvic inlet. A separate right ovary is not identified in the expected region of the right adnexa suggesting that the ovaries probably contained within this region as well. There is mild surrounding inflammatory change. The appendix demonstrates peripheral enhancement, dilatation and surrounding inflammatory change and extends directly within this complex lesion. The distal portion of the appendix is not well visualized within the lesion. The right ureter also courses directly through the region and is mildly more prominent than the left. BONES AND SOFT TISSUES: No acute osseous abnormality. Focal advanced degenerative changes are noted at L5-S1. No suspicious lytic or blastic lesion. Soft tissues are unremarkable. IMPRESSION: 1. Indeterminant etiology of an inflammatory mass versus phlegmonous change in the right lower quadrant extending into the right hemipelvis measuring up to 6.3 cm. Multiple structures are involved including a dilated and inflamed appendix, the right ovary as well as the right ureter which courses through the region. Findings are most concerning for either acute on chronic appendicitis versus appendicitis superimposed on underlying distal appendiceal mass. Contained perforation is also a consideration. Negative for pneumoperitoneum. Negative for right hydronephrosis. Given patient's age a tubo-ovarian abscess is considered less likely. No drainable fluid component to the mass is identified. 2. 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 3. Uncomplicated colonic diverticulosis. The above findings were discussed with Dr. Daniels on 12/07/2019 11:40 AM, who responded indicating that the communication was understood. Signed by: Adelaida Teixeira MD on 12/07/2019 11:56 AM Dictated By: ADELAIDA TEIXEIRA MD 1156 Transcribed By: TEE on 12/07/19 1156 COPY TO: JOSHUA DANIELS DO THYROID 2018-03-31 09:48:00 [place] [address] Patient Name: MCKINLEY GRAF MR #: [id number] : 1950 Age/Sex: 67/F Req #: [id number] Adm Physician: Ordered by: KEVIN REIS MD Report #: [id number] Location: Room/Bed: Procedure: [id number] US/US THYROID Exam Date: 03/31/18 Exam Time: 918 REPORT STATUS: Signed EXAM: Thyroid Ultrasound INDICATION: [id number] HYPOTHYROIDISM COMPARISON: None TECHNIQUE: Transverse and sagittal images were obtained of the thyroid gland. FINDINGS: Thyroid gland: Size: Right lobe 4.0 x 1.4 x 1.2 cm, Normal in size Left lobe 3.0 x 0.9 x 1.1 cm, Normal in size Isthmus 0.3 cm, Normal in size Appearance: Heterogeneous echotexture without increased vascularity Masses/Nodules: None Parathyroid: No focal parathyroid masses. IMPRESSION: Heterogeneous thyroid gland. No focal nodule is seen. Signed by: Dr. Wilman Trammell M.D. on 03/31/2018 9:48 AM Dictated By: WILMAN TRAMMELL MD, MD 7 Transcribed By: TEE on 03/31/18947 COPY TO: KEVIN REIS MD
--- OUTSIDE RECORDS SUMMARY | 2019-12-21 15:37 | XMS REPORT | Continuity of Care Document ---
Author Author [facility] t Organization [facility] Address [address] [place] [address] [address]. [address] [place] [address] Phone Unavailable Care Team Providers Care Steeple Jack Name Role Phone Gregg DANIELS Attphys Unavailable [...] Source CT ABDOMEN/PELVIS W 2019-12-07 11:47:00 [facility] CENTERName: MCKINLEY BLAKELY : 1950 Sex: F [facility] [address] [place], [place] [address] Patient Name: MCKINLEY BLAKELY MR #: [id number] : 1950 Age/Sex: 69/F Req #: [id number] Adm Physician: Ordered by: JOSHUA DANIELS DO Report #: [id number] Location: ER Room/Bed: Procedure: [id number] CT/CT ABDOMEN/PELVIS W Exam Date: 12/07/19 Exam [...] TO: JOSHUA DANIELS DO THYROID 2018-03-31 09:48:00 [place] [address] Patient Name: MCKINLEY GRAF MR #: [id number] : 1950 Age/Sex: 67/F Req #: [id number] Adm Physician: Ordered by: KEVIN REIS MD Report #: [id number] Location: Room/Bed: Procedure: [id number] US/US THYROID Exam Date: 03/31/18 Exam Time: [...]
--- NOTE | 2019-12-31 12:46 | Discharge Summary ---
HOSPITAL COURSE: The patient admitted to the hospital with acute appendicitis. The patient underwent surgery for acute events and by Dr. Gibbs. This patient is on IV antibiotics. Appendix and Meckel's diverticulum were seen. The patient also had removal of right adnexum, which include oophorectomy. The patient also had right-sided salpingo-oophorectomy, and resection of Meckel's diverticulum. The patient after surgery did well, started with clear liquid diet and once the patient was able to ambulate and have a mechanical soft diet, the patient was discharged home. Followup pathology and followup microbiology showed some actinomycosis. The patient will be admitted again for IV antibiotics and need of penicillin. For further information, look in the chart and for medicines on discharge, look in the medical reconciliation sheet. The patient also was found to be diabetic and the patient was discharged on metformin and glimepiride, and for hypertension and hyperlipidemia, we will continue on the same medication and for thyroid, same medicines too. MD ZENA Young/GABRIELAL /[id number]
== END 2019-12-12 18:53 | disposition home or self-care (01) | DRG 330 ==
LOC: ER 09:00 → ERHOLD 11:51 → MED/SURG3 14:33 → MED/SURG 12-08 16:55
PROVIDERS: ADMIT Family Medicine; ATTEND Family Medicine
PROC: 0DB80ZZ Excision of Small Intestine, Open Approach (ICD-10-PCS; 2019-12-08)
PROC: 0UT50ZZ Resection of Right Fallopian Tube, Open Approach (ICD-10-PCS; 2019-12-08)
PROC: 0UT00ZZ Resection of Right Ovary, Open Approach (ICD-10-PCS; 2019-12-08)
PROC: 0DTJ0ZZ Resection of Appendix, Open Approach (ICD-10-PCS; principal; 2019-12-08 10:30)
DX: K35.33 Acute appendicitis with perforation, localized peritonitis, and gangrene, with abscess (principal); N70.02 Acute oophoritis; A42.89 Other forms of actinomycosis; E03.9 Hypothyroidism, unspecified; I10 Essential (primary) hypertension; Q43.0 Meckel's diverticulum (displaced) (hypertrophic); D64.9 Anemia, unspecified; E11.65 Type 2 diabetes mellitus with hyperglycemia; N70.92 Oophoritis, unspecified; Z20.828 Contact with and (suspected) exposure to other viral communicable diseases; Z79.84 Long term (current) use of oral hypoglycemic drugs
CPT/HCPCS: 36415; 74177; 80048; 80053; 81001; 82150; 82948; 83036; 83605; 83690; 85025; 87040; 87071; 87205; 88304; 88305; 88312; 96360; 96361; 99284; J0360; J1100; J1170; J2001; J2270; J2405; J2543; J2710; J3010; J7030; Q9967

== ENCOUNTER 2019-12-26 17:54 | Inpatient (IN) | payer MEDICARE ==
[~2019-12-26] VITALS: Ht 157.5 cm; Wt 63.5 kg
[~2019-12-26 17:54] MED LIST: LOSARTAN-HCTZ1 EACH PO; NP THYROID90 MG PO
[2019-12-26 18:16] VITALS: BP 132/64
[2019-12-26 18:29] LABS: BASOPHILS % 0.5 % (0.0-1.0); EOSINOPHILS # (AUTO) 0.1 (0.0-0.4); EOSINOPHILS % 1.2 % (0.0-6.0); HEMOGLOBIN 12.2 g/dL (12.0-16.0); LYMPHOCYTES # (AUTO) 1.7 (1.0-3.2); LYMPHOCYTES % 29.2 % (18.0-39.1); MEAN CORPUSCULAR VOLUME 90.9 fL (81-99); MONOCYTES # (AUTO) 0.3 (0.2-0.8); MONOCYTES % 5.9 % (4.4-11.3); NEUTROPHILS # (AUTO) 3.6 (2.1-6.9); NEUTROPHILS % 62.7 % (38.7-80.0); PLATELET COUNT 266 x10e3/uL (140-360); RED BLOOD COUNT 4.07 x10e6/uL (3.6-5.1); RED CELL DISTRIBUTION WIDTH 13.5 % (11.7-14.4)
[2019-12-26 18:54] LABS: ALANINE AMINOTRANSFERASE 34 IU/L (0-55); ALBUMIN 3.5 g/dL (3.5-5.0); ALBUMIN/GLOBULIN RATIO 0.8 (0.8-2.0); ALKALINE PHOSPHATASE 72 IU/L (40-150); ANION GAP 11.8 mmol/L (8-16); BLOOD UREA NITROGEN 18 mg/dL (7-26); BUN/CREATININE RATIO 25 (6-25); CALCIUM 9.2 mg/dL (8.4-10.2); CARBON DIOXIDE 27 mmol/L (22-29); CHLORIDE 102 mmol/L (98-107); CREATININE, SERUM 0.73 mg/dL (0.57-1.11); EST GLOMERULAR FILTRATION RATE > 60 ML/MIN (60-); GLUCOSE 289 mg/dL (74-118); POTASSIUM 3.8 mmol/L (3.5-5.1); SODIUM 137 mmol/L (136-145)
[2019-12-26] MEDS ORDERED: DIPHENHYDRAMINE HCL 25 MG CAP PO PRN (19:00)
[2019-12-26 20:00] VITALS: BP 133/70
[2019-12-26 20:15] VITALS: BP 132/64
[2019-12-26] MEDS ORDERED: NP THYROID60 MG (20:30)
[2019-12-26] MEDS ORDERED: ACTOS15 MG PO (20:30)
[2019-12-26] MEDS ORDERED: CLONIDINE HCL0.1 MG PO (20:30)
[2019-12-26] MEDS ORDERED: GLIMEPIRIDE2 MG PO (20:30)
[2019-12-26] MEDS ORDERED: FOSAMAX70 MG (20:30)
[2019-12-26] MEDS ORDERED: DEXTROSE 50% SYRINGE 50 ML IV PRN (21:15)
[2019-12-26] MEDS ORDERED: SODIUM CHLORIDE 0.9% 250ML 250 ML ONE (21:55)
[2019-12-26] MEDS: CLINDAMYCIN PHOS 900MG/ 50ML 50 ML IV SCH (23:45)
[2019-12-27] VITALS (8 sets, daily range): BP systolic 96–141; BP diastolic 56–77
[2019-12-27] MEDS: THYROID 60 MG TAB PO SCH (06:00)
[2019-12-27] MEDS: CLINDAMYCIN PHOS 900MG/ 50ML 50 ML IV SCH ×3 (06:00→22:30)
[2019-12-27] MEDS: PIOGLITAZONE HCL 15 MG TAB PO SCH (08:58)
[2019-12-27] MEDS: CLONIDINE HCL 0.1 MG TAB PO SCH ×2 (08:58→17:00)
[2019-12-27] MEDS: GLIMEPIRIDE 2 MG TAB PO SCH (08:58)
[2019-12-27] MEDS: PANTOPRAZOLE SOD 40 MG TABEC PO SCH (08:58)
[2019-12-27] MEDS: LOSARTAN POTASSIUM 25 MG TAB PO SCH (08:59)
[2019-12-27] MEDS ORDERED: NON-FORMULARY MEDICATION (Thyroid,Pork (Np Thyroid) 90 MG) PO SCH (09:00)
[2019-12-27] MEDS: HYDROCHLOROTHIAZIDE 25 MG TAB PO SCH (09:00)
[2019-12-27] MEDS ORDERED: IRON SUCROSE 100 MG in SODIUM CHLORIDE 0.9% 100 ML 100 ML IV SCH (09:00)
[2019-12-27] MEDS: INSULIN REGULAR, HUMAN 100 UNIT/1 ML 3ML VIAL SQ SCH ×4 (09:01→21:23)
[2019-12-27] MEDS: SODIUM CHLORIDE 0.9% 1000ML 1,000 ML IV SCH ×3 (10:35→21:23)
[2019-12-27] MEDS ORDERED: SODIUM CHLORIDE 0.9% 50ML 50 ML ONE (14:53)
[2019-12-27] MEDS ORDERED: IOPAMIDOL 370 MG/ML 200 ML INFUS..BTL INJ ONE (14:53)
[2019-12-27] MEDS: SODIUM CHLORIDE 0.9% IV SCH ×2 (15:11→21:22)
[2019-12-27] MEDS: PENICILLIN POTASSIUM IV SCH ×2 (15:11→21:22)
[2019-12-27 18:29] LABS: ANION GAP 12.8 mmol/L (8-16); BLOOD UREA NITROGEN 11 mg/dL (7-26); BUN/CREATININE RATIO 16 (6-25); CALCIUM 8.5 mg/dL (8.4-10.2); CARBON DIOXIDE 23 mmol/L (22-29); CHLORIDE 104 mmol/L (98-107); CREATININE, SERUM 0.69 mg/dL (0.57-1.11); EST GLOMERULAR FILTRATION RATE > 60 ML/MIN (60-); GLUCOSE 238 mg/dL (74-118); POTASSIUM 3.8 mmol/L (3.5-5.1); SODIUM 136 mmol/L (136-145)
[2019-12-28] VITALS: BP_SYST 116; BP_SYST 98; BP_DIAS 47; BP_DIAS 59
[2019-12-28 00:01] VITALS: BP 109/60
[2019-12-28] MEDS: PENICILLIN POTASSIUM IV SCH ×2 (03:20→08:34)
[2019-12-28] MEDS: SODIUM CHLORIDE 0.9% IV SCH ×2 (03:20→08:34)
[2019-12-28 04:00] VITALS: BP 126/64
[2019-12-28 05:39] LABS: BASOPHILS % 0.6 % (0.0-1.0); EOSINOPHILS # (AUTO) 0.1 (0.0-0.4); EOSINOPHILS % 4.3 % (0.0-6.0); HEMATOCRIT 32.3 % (34.2-44.1); HEMOGLOBIN 10.6 g/dL (12.0-16.0); LYMPHOCYTES # (AUTO) 1.3 (1.0-3.2); LYMPHOCYTES % 40.9 % (18.0-39.1); MEAN CORPUSCULAR HGB CONC 32.8 g/dL (31-35); MEAN CORPUSCULAR VOLUME 91.5 fL (81-99); MONOCYTES # (AUTO) 0.3 (0.2-0.8); MONOCYTES % 10.1 % (4.4-11.3); NEUTROPHILS # (AUTO) 1.4 (2.1-6.9); NEUTROPHILS % 43.5 % (38.7-80.0); PLATELET COUNT 182 x10e3/uL (140-360); RED BLOOD COUNT 3.53 x10e6/uL (3.6-5.1); RED CELL DISTRIBUTION WIDTH 13.9 % (11.7-14.4)
[2019-12-28] MEDS: CLINDAMYCIN PHOS 900MG/ 50ML 50 ML IV SCH ×2 (06:05→14:33)
[2019-12-28] MEDS: THYROID 60 MG TAB PO SCH (06:05)
[2019-12-28 06:14] LABS: ALANINE AMINOTRANSFERASE 38 IU/L (0-55); ALBUMIN/GLOBULIN RATIO 0.8 (0.8-2.0); ALKALINE PHOSPHATASE 64 IU/L (40-150); ANION GAP 12.9 mmol/L (8-16); BLOOD UREA NITROGEN 11 mg/dL (7-26); BUN/CREATININE RATIO 17 (6-25); CALCIUM 8.2 mg/dL (8.4-10.2); CARBON DIOXIDE 23 mmol/L (22-29); CHLORIDE 109 mmol/L (98-107); CREATININE, SERUM 0.63 mg/dL (0.57-1.11); EST GLOMERULAR FILTRATION RATE > 60 ML/MIN (60-); GLUCOSE 128 mg/dL (74-118); MAGNESIUM 1.7 MG/DL (1.3-2.1); POTASSIUM 3.9 mmol/L (3.5-5.1); SODIUM 141 mmol/L (136-145)
[2019-12-28] MEDS: SODIUM CHLORIDE 0.9% 1000ML 1,000 ML IV SCH (07:15)
[2019-12-28] MEDS: GLIMEPIRIDE 2 MG TAB PO SCH (08:31)
[2019-12-28] MEDS: PANTOPRAZOLE SOD 40 MG TABEC PO SCH (08:31)
[2019-12-28] MEDS: PIOGLITAZONE HCL 15 MG TAB PO SCH (08:31)
[2019-12-28] MEDS: INSULIN REGULAR, HUMAN 100 UNIT/1 ML 3ML VIAL SQ SCH ×2 (08:32→11:30)
[2019-12-28] MEDS: CLONIDINE HCL 0.1 MG TAB PO SCH (09:00)
[2019-12-28 09:19] VITALS: BP 135/69
[2019-12-28] MEDS: LOSARTAN POTASSIUM 25 MG TAB PO SCH (09:45)
[2019-12-28] MEDS: HYDROCHLOROTHIAZIDE 25 MG TAB PO SCH (09:45)
[2019-12-28 09:48] VITALS: BP 135/69
[2019-12-28 12:23] VITALS: BP 115/66
[2019-12-28] MEDS ORDERED: SODIUM CHLORIDE 0.9% IV SCH (15:00)
[2019-12-28] MEDS ORDERED: PENICILLIN POTASSIUM IV SCH (15:00)
[2020-01-01] MEDS ORDERED: ALENDRONATE SODIUM 70 MG TAB PO SCH (06:30)
== END 2019-12-28 16:28 | disposition home health service (06) | DRG 373 ==
LOC: MED/SURG2 17:54
PROVIDERS: ADMIT Family Medicine; ATTEND Family Medicine
PROC: 02HV33Z Insertion of Infusion Device into Superior Vena Cava, Percutaneous Approach (ICD-10-PCS; principal; 2019-12-26)
DX: A42.1 Abdominal actinomycosis (principal); I10 Essential (primary) hypertension; E78.5 Hyperlipidemia, unspecified; E11.9 Type 2 diabetes mellitus without complications; Z11.59 Encounter for screening for other viral diseases; D50.9 Iron deficiency anemia, unspecified
CPT/HCPCS: 36415; 36569; 71045; 74177; 80048; 80053; 82948; 83735; 85025; J1756; J1817; J2540; J7030; J7050; Q9967; U0002